=== PATIENT | female | born 1980 | race African-American/Black ===

== ENCOUNTER 2016-09-29 21:44 | Emergency (ER) | payer BC, MEDICAID ==
[2016-09-29] MEDS ORDERED: ASPIRIN 81 MG CHEW TAB ONE (22:33)
[2016-09-29] MEDS ORDERED: LIDOCAINE 2% VISC 15 ML UDC ONE (22:34)
[2016-09-29] MEDS ORDERED: ALU/MAG/SIM 30 ML UDC ONE (22:34)
== END 2016-09-30 01:31 | disposition home or self-care (01) ==
LOC: ER 21:44
CPT/HCPCS: 36415; 71010; 80053; 82550; 83735; 84484; 85025; 85610; 85730; 93005

== ENCOUNTER 2016-10-24 21:50 | Emergency (ER) | payer BC | END 2016-10-24 23:35 | disposition home or self-care (01) | LOC: FASTR 21:50 | DX: T78.40XA Allergy, unspecified, initial encounter (principal) ==

== ENCOUNTER 2016-10-26 21:40 | Emergency (ER) | payer BC ==
[2016-10-26] MEDS ORDERED: ASPIRIN 81 MG CHEW TAB ONE (22:33)
[2016-10-26] MEDS ORDERED: ALU/MAG/SIM 30 ML UDC ONE (23:40)
[2016-10-26] MEDS ORDERED: LIDOCAINE 2% VISC 15 ML UDC ONE (23:40)
== END 2016-10-27 03:17 | disposition home or self-care (01) ==
LOC: ER 21:40
DX: R07.9 Chest pain, unspecified (principal)
CPT/HCPCS: 36415; 71010; 80053; 82550; 83690; 83735; 84484; 85025; 85610; 85730; 93005